=== PATIENT | female | born 1995 | race American Indian/Alaskan Native ===

== ENCOUNTER 2018-11-19 03:49 | Inpatient (IN) | payer MEDICAID ==
[2018-11-19] MEDS ORDERED: PITOCin/NS 20 UNIT/1000ML DRIP 20 UNITS/1,000 ML BAG IV SCH (04:30)
[2018-11-19] MEDS ORDERED: SUBLIMAZE IV ONE (04:30)
[2018-11-19] MEDS ORDERED: LACTATED RINGERS 1,000 ML ONE (04:58)
[2018-11-19] MEDS ORDERED: STADOL IV PRN (05:08)
[2018-11-19] MEDS ORDERED: AMPICILLIN/NS 2 GM/100 ML 2 GM/100 ML BAG IV ONE (05:08)
[2018-11-19] MEDS ORDERED: PITOCin/NS 20 UNIT/1000ML DRIP 20,000 MILLIUNITS/1,000 ML BAG IV ONE (05:24)
[2018-11-19] MEDS: LACTATED RINGERS 1,000 ML IV SCH ×2 (05:25→05:47)
[2018-11-19 05:34] LABS: Basophils # (Auto) 0.1 K/mm3 (0.0-0.1); Basophils % (Auto) 0.7 % (0.0-1.8); Eosinophils % (Auto) 0.2 % (0.0-4.3); Hematocrit 38.9 % (30.3-42.9); Hemoglobin 13.4 gm/dl (10.1-14.3); Lymphocytes # (Auto) 1.5 K/mm3 (1.2-5.4); Lymphocytes % (Auto) 17.1 % (13.4-35.0); Mean Corpuscular HGB Conc 35 % (30-34); Mean Corpuscular Volume 94 fl (79-97); Monocytes # (Auto) 0.8 K/mm3 (0.0-0.8); Monocytes % (Auto) 9.5 % (0.0-7.3); Platelet Count 228 K/mm3 (140-440); Red Blood Count 4.14 M/mm3 (3.65-5.03); Red Cell Distribution Width 13.9 % (13.2-15.2)
[2018-11-19] MEDS ORDERED: SUBLIMAZE ONE (05:38)
[2018-11-19] MEDS ORDERED: NARCAN 2 MG/2 ML IV PRN (07:03)
--- NOTE | 2018-11-19 07:07 | Anesthesia Day of Surgery ---
Anesthesia Day of Surgery - Day of Surgery Patient Examined: Yes Patient H&P Reviewed: Yes Patient is NPO: Yes Beta Blockers: No Cardiac Clearance: No Pulmonary Clearance: No Jaskaran's Test: N/A
--- NOTE | 2018-11-19 07:09 | Anesthesia Consultation ---
Anesthesia Consult and Med Hx - Airway Anesthetic Teeth Evaluation: Good ROM Head & Neck: Adequate Mental/Hyoid Distance: Adequate Mallampati Class: Class I Intubation Access Assessment: Good - Pulmonary Exam CTA: Yes - Cardiac Exam Cardiac Exam: RRR - Pre-Operative Health Status ASA Pre-Surgery Classification: ASA2 Proposed Anesthetic Plan: Epidural - Pulmonary Hx Smoking: No Hx Asthma: No Hx Respiratory Symptoms: No SOB: No COPD: No Home Oxygen Therapy: No Hx Pneumonia: No - Cardiovascular System Hx Hypertension: No - Central Nervous System Hx Seizures: No Hx Psychiatric Problems: No - Endocrine Hx Renal Disease: No Hx End Stage Renal Disease: No Hx Hypothyroidism: No Hx Hyperthyroidism: No - Hematic Hx Anemia: No Hx Sickle Cell Disease: No - Other Systems Hx Alcohol Use: No
[2018-11-19] MEDS ORDERED: LIDOCAINE 1.5%/EPI 1:200,000 INFILTRATI ONE (07:12)
[2018-11-19] MEDS ORDERED: MARCAINE 0.25% INFILTRATI ONE (07:12)
[2018-11-19] MEDS ORDERED: fentaNYL-BUPIV 2 MCG/ML-0.125% 200 MCG/100 ML BAG EPIDURAL SCH (08:00)
[2018-11-19] MEDS ORDERED: MINERAL OIL ONE (09:20)
[2018-11-19] MEDS ORDERED: AMPICILLIN/NS 1 GM/50 ML 1 GM/50 ML BAG IV SCH (09:30)
[2018-11-19] MEDS ORDERED: METHERGINE IM ONE ×2 (10:25→17:33)
--- NOTE | 2018-11-19 10:49 | History and Physical Report ---
History of Present Illness Date of examination: 11/19/18 Date of admission: 11/19/18 04:34 Chief complaint: I'm having contractions History of present illness: Patient is a 22 year old who presents at 40.4 weeks in active labor. Patient has had an unremarkable course. She transferred to [facility] when she moved from [place] about 6 weeks ago. 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 Past History Past Medical History: no pertinent history Past Surgical History: no surgical history [employer] History: herpes Social history: - Obstetrical History Expected Date of Delivery: 11/14/18 Actual Gestation: 40 Week(s) 5 Day(s) : 1 Para: 0 Number of Living Children: 0 Medications and Allergies Allergies Allergy/AdvReac Type Severity Reaction Status Date / Time No Known Allergies Allergy Verified 11/19/18 05:02 Home Medications Medication Instructions Recorded Confirmed Last Taken Type Ferrous Sulfate [Iron] 325 mg PO QDAY 11/19/18 11/19/18 11/18/18 History Pnv No.95/Ferrous Fum/Folic AC 1 each PO QDAY 11/19/18 11/19/18 11/18/18 History [ Vitamin Tablet] Active Meds: Active Medications Butorphanol Tartrate (Stadol) 1 mg IV Q2H PRN PRN Reason: Labor Pain Ephedrine Sulfate (Ephedrine Sulfate) 10 mg IV Q2M PRN PRN Reason: Hypotension Ampicillin Sodium (Ampicillin/Ns 1 Gm/50 Ml) 1 gm in 50 mls @ 100 mls/hr IV Q4HR SRINIVASAN; Protocol Lactated Ringer's (Lactated Ringers) 1,000 mls @ 125 mls/hr IV DIRECT SRINIVASAN Last Admin: 11/19/18 05:47 Dose: 1,000 mls/hr Documented by: Oxytocin/Sodium Chloride (Pitocin/Ns 20 Unit/1000ml Drip) 20 units in 1,000 mls @ 125 mls/hr IV DIRECT SRINIVASAN Fentanyl/Bupivacaine/Sodium Chlor (Fentanyl-Bupiv 2 Mcg/Ml-0.125%) 200 mcg in 100 mls @ 12 mls/hr EPIDURAL TITR SRINIVASAN; Protocol Last Admin: 11/19/18 07:52 Dose: 12 mls/hr Documented by: Naloxone HCl (Narcan 2 Mg/2 Ml) 0.2 mg IV Q5M PRN PRN Reason: Respiratory sedation Review of Systems All systems: negative Gastrointestinal: abdominal pain Genitourinary: leakage of fluid, contractions - Vital Signs Vital signs: Vital Signs Temp Pulse Resp BP 98.6 F 87 16 117/73 11/19/18 04:09 11/19/18 04:09 11/19/18 04:09 11/19/18 04:09 Temp Pulse Resp BP Pulse Ox 98.4 F 101 H 24 118/68 96 11/19/18 05:11 11/19/18 10:29 11/19/18 05:11 11/19/18 10:29 11/19/18 07:55 - Physical Exam Breasts: Positive: deferred Cardiovascular: Regular rate, Normal S1, Normal S2 Lungs: Positive: Clear to auscultation, Normal air movement Abdomen: Positive: normal appearance, soft, normal bowel sounds Genitourinary (Female): Positive: normal external genitalia, normal perenium Vulva: both: normal Vagina: Positive: normal moisture Uterus: Positive: normal size, enlarged, normal contour - Obstetrical FHR: auscultation normal Uterine Contraction Monitor Mode: External Cervical Dilatation: 4 Cervical Effacement Percentage: 80 station: 0 Uterine Contraction Pattern: Regular Uterine Contraction Intensity: Strong/Firm Results Result Diagrams: 11/19/18 05:15 Abnormal lab results 11/19/18 Range/Units 05:15 MCHC 35 H (30-34) % Grady % (Auto) 9.5 H (0.0-7.3) % Seg Neutrophils % 72.5 H (40.0-70.0) % All other labs normal. Assessment and Plan IUP at 40.4 in active labor. Admit for labor management. AROM when needed. Epidural when needed. Anticipate .
--- NOTE | 2018-11-19 10:59 | Procedure Note ---
OB Delivery Note - Delivery Date of Delivery: 11/19/18 Surgeon: SKY ROSAS Estimated blood loss: 300cc - Vaginal Delivery presentation: vertex Delivery position: OA Intrapartum events: meconium Delivery induction: none Delivery monitor: external FHT, external uterine Route of delivery: Delivery placenta: spontaneous Delivery cord: nuchal cord, 3 umbilical vessels Episiotomy: none Delivery laceration: other (periurethral) Anesthesia: epidural Delivery comments: Viable male delivered over intact perineum. Weight 7 pounds 10 ounces. Apgars 8,9. handed to waiting [facility] personnel on hand due to presence of meconium. Placenta delivered spontaneously and intact with 3vc. Small periurethral laceration was hemostatic. Excellent hemostasis. - A at 1 minute: 8 at 5 minutes: 9 Gender: Male (7 pounds 10 ounces)
[2018-11-19] MEDS ORDERED: BENADRYL PO PRN (14:54)
[2018-11-19] MEDS ORDERED: ZOFRAN IV PRN (14:54)
[2018-11-19] MEDS ORDERED: MILK OF MAGNESIA PO PRN (14:54)
[2018-11-19] MEDS ORDERED: LANSINOH TP PRN (14:54)
[2018-11-19] MEDS ORDERED: PHENERGAN PO PRN (14:54)
[2018-11-19] MEDS ORDERED: TUCKS PAD TP PRN (14:54)
[2018-11-19] MEDS ORDERED: PHENERGAN PR PRN (14:54)
[2018-11-19] MEDS ORDERED: NORCO 5/325 PO PRN (14:54)
[2018-11-19] MEDS ORDERED: TYLENOL PO PRN (14:54)
[2018-11-19] MEDS ORDERED: DULCOLAX PR PRN (14:54)
[2018-11-19] MEDS ORDERED: SODIUM CHLORIDE FLUSH SYRINGE 10 ML IV NR (14:54)
[2018-11-19] MEDS ORDERED: MINERAL OIL PO ONE (17:31)
[2018-11-19] MEDS: IBUPROFEN PO SCH (18:00)
[2018-11-19] MEDS: COLACE PO SCH (22:34)
[2018-11-19 22:58] LABS: Hematocrit 33.8 % (30.3-42.9); Hemoglobin 11.6 gm/dl (10.1-14.3)
[2018-11-20] MEDS: IBUPROFEN PO SCH ×3 (06:06→18:11)
[2018-11-20] MEDS ORDERED: PRENATAL VITAMIN PO SCH (10:00)
[2018-11-20] MEDS: COLACE PO SCH (11:07)
--- NOTE | 2018-11-20 15:37 | Progress Note ---
Assessment and Plan PPD 1 s/p . Doing well. Plan for discharge today. Subjective - Subjective Date of service: 11/20/18 Interval history: Patient is a 22 year old who presents at 40.4 weeks in active labor. Patient has had an unremarkable course. She transferred to [facility] [employer] when she moved from [place] about 6 weeks ago. 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 Patient reports: appetite normal, voiding normally, pain well controlled, ambulating normally : doing well Objective - Vital Signs Latest vital signs: Vital Signs Temp Pulse Resp BP BP Pulse Ox 11/20/18 08:03 98.4 F 82 18 101/64 95 11/20/18 06:06 18 11/20/18 00:55 98.5 F 96 H 18 101/56 97 11/19/18 21:19 98.6 F 86 18 116/73 97 11/19/18 15:56 98.5 F 77 18 109/59 96 Intake and Output 11/20/18 11/20/18 11/20/18 06:59 14:59 22:59 Intake Total 240 120 Balance 240 120 Intake: Oral 120 Intake, Free Water 240 Other: Total, Intake Amount 120 # Voids Void 2 - Exam Breasts: Present: deferred Cardiovascular: Present: Regular rate, Normal S1, Normal S2 Lungs: Present: Clear to auscultation, Normal air movement Abdomen: Present: normal appearance, soft, normal bowel sounds Vulva: both: normal Uterus: Present: normal, firm Extremities: Present: normal Deep Tendon Reflex Grade: Normal +2
--- NOTE | 2018-11-20 15:38 | Discharge Summary ---
Providers - Providers Date of Admission: 11/19/18 04:34 Date of discharge: 11/20/18 Attending physician: SKY ROSAS Primary care physician: SKY ROSAS Hospitalization Reason for admission: active labor Delivery: Episiotomy: none Laceration: none complications: none Discharge diagnosis: IUP at term delivered baby: male Hospital course: unremarkable Condition at discharge: Good Disposition: DC-01 TO HOME OR SELFCARE Plan - Discharge Medications Prescriptions: HYDROcodone/APAP 5-325 [[place] 5/325] 1 each PO Q6HR PRN #25 tablet PRN Reason: Pain Ibuprofen [Motrin] 800 mg PO Q8HR PRN #40 tablet PRN Reason: Pain, Moderate (4-6) - Provider Discharge Summary Activity: routine, no sex for 6 weeks, no heavy lifting 4 weeks, no strenuous exercise Diet: routine Instructions: routine Additional instructions: [] Smoking cessation referral if applicable(refer to patient education folder for contact #) [] Refer to [facility] Booklet Call your doctor immediately for: * Fever > 100.5 * Heavy vaginal bleeding ( >1 pad per hour) * Severe persistent headache * Shortness of breath * Reddened, hot, painful area to leg or breast * Drainage or odor from incision. * Keep incision clean and dry at all times and follow doctor's instructions regarding bathing/showering - Follow up plan Follow up: SKY ROSAS MD [Primary Care Provider] - 6 Weeks
[2018-11-21 00:12] VITALS: BP 121/70
== END 2018-11-21 00:05 | disposition home or self-care (01) | DRG 775 ==
LOC: TRG 03:49 → LD 04:34 → TRG 04:34 → OB 14:53
PROVIDERS: ADMIT Obstetrics & Gynecology; ATTEND Obstetrics & Gynecology
PROC: 10E0XZZ Delivery of Products of Conception, External Approach (ICD-10-PCS; principal; 2018-11-19)
PROC: 10907ZC Drainage of Amniotic Fluid, Therapeutic from Products of Conception, Via Natural or Artificial Opening (ICD-10-PCS; 2018-11-19)
PROC: 3E0R3BZ Introduction of Anesthetic Agent into Spinal Canal, Percutaneous Approach (ICD-10-PCS; 2018-11-19)
PROC: 00HU33Z Insertion of Infusion Device into Spinal Canal, Percutaneous Approach (ICD-10-PCS; 2018-11-19)
DX: O77.0 Labor and delivery complicated by meconium in amniotic fluid (principal); Z3A.40 40 weeks gestation of pregnancy; Z37.0 Single live birth; O69.81X0 Labor and delivery complicated by cord around neck, without compression, not applicable or unspecified; O71.82 Other specified trauma to perineum and vulva
CPT/HCPCS: 36415; 59025; 85014; 85018; 85025; 86850; 86900; 86901; G0378; J0290; J0595; J2210; J2590; J3010; J7120